=== PATIENT | male | born 1990 | race Caucasian/White ===

== ENCOUNTER 2023-12-23 18:14 | Emergency (ER) | payer BC, OTHER, SELFPAY ==
[2023-12-23 18:20] VITALS: BP 125/86; PULSE 116; RESP 24; TEMP 37.7; O2SAT 99
--- NOTE | 2023-12-23 18:22 | ED.GENADULT ---
HPI - General Adult General Chief complaint: Arrhythmia/Palpitations Stated complaint: pressure under eyes,migraine,slurring words Time Seen by Provider: 12/23/23 18:15 Source: patient, RN notes reviewed and old records reviewed Mode of arrival: ambulatory Limitations: no limitations History of Present Illness HPI narrative: 33-year-old male presents to the [facility] with multiple complaints. States that he feels dizzy cannot stand, severe headache, slurring words, nausea. States that his entire body hurts, reports that it is bone pain. Patient recently out of drug rehab for methamphetamine use. States the last time he used methamphetamine was 09 November On arrival patient is clammy, tachycardic in the 120s. Patient extremely anxious Patient states he does take propanolol but had stopped when he was in drug rehab Related Data Home Medications Medication Instructions Recorded Confirmed gabapentin 600 mg tablet 600 mg PO DAILY 12/23/23 12/23/23 lisdexamfetamine 10 mg capsule 10 mg PO DAILY 12/23/23 12/23/23 (Vyvanse) Allergies Allergy/AdvReac Type Severity Reaction Status Date / Time No Known Allergies Allergy Verified 12/23/23 18:51 Review of Systems Review of Systems: All systems reviewed & are unremarkable except as noted in HPI and below Constitutional: Constitutional: Reports as per HPI, Reports body ache(s), Reports fatigue, Reports headache(s) and Reports weakness Eyes: Eyes: Reports no additional eye complaints ENT: Reports system reviewed and no additional complaints, except as documented Cardiovascular: Cardiovascular: Reports as per HPI, Denies chest pain, Reports diaphoresis, Reports rapid heart rate and Denies dyspnea Respiratory: Respiratory: Reports no additional respiratory complaints, Denies chest congestion, Denies cough and Denies dyspnea Gastrointestinal: Gastrointestinal: Reports as per HPI, Denies abdominal pain, Reports nausea and Denies vomiting Musculoskeletal: Musculoskeletal: Reports as per HPI, Reports back pain and Reports muscle weakness Integumentary/Breasts: Skin/Breast: Reports system reviewed and no additional complaints, except as docu Neurologic: Reports as per HPI, Reports abnormal gait, Reports dizziness, Reports headache(s), Denies focal weakness, Denies numbness, Denies paresthesias and Reports weakness Psychiatric: Psychiatric: Reports as per HPI, Reports anxiety and Reports confusion Allergic/Immunologic: Allergic/Immunologic: Reports no additional allergic/immunologic complaints PMFSH Past Medical History Medical History (Updated 12/23/23 @ 18:56 by Karlene Chua APRN) Anxiety Methamphetamine dependence in remission Social History Social History (Updated 12/23/23 @ 18:36 by Karlene Chua APRN) Substance use: former Substance use type: methamphetamine Last use: 11/10/23 Gender identity (if verbalized by the patient): Male Comments At the time of my signature, I reviewed and agree with the nursing past medical, surgical, social, and family history. There is no relevant family history pertinent to the patient complaint. Exam Const: General: cooperative, well developed, alert, in distress moderate, anxious, uncomfortable and well nourished Nutritional Appearance: well nourished Orientation/consciousness: patient oriented x3 Limitations: no limitations HENMT: Head: normal to inspection Ears: hearing grossly normal bilaterally and external ears normal Face/Nose/Sinus: Normal external nose present, Normal nares present, Normal nasal mucous membranes and turbinates present, normal facial exam and face symmetric Face and sinus: normal facial exam and face symmetric Eyes: General: appearance normal, both eyes and all related structures Alignment and Position: alignment normal Periorbital: periorbital findings normal Neck: Neck: normal visual inspection, full ROM, no lymphadenopathy and no meningeal signs Chest: Chest palpation & inspection: normal
--- NOTE | 2023-12-23 19:50 | ECG_ITS ---
Test Date: 2023-12-23 18:22:16 Measurements Intervals [place] Rate: 113 P: 58 PA: 153 QRS: 72 QRSD: 97 T: 33 QT: 309 QTc: 424 Interpretive Statements SINUS TACHYCARDIA NONSPECIFIC T-WAVE ABNORMALITY CANNOT RULE OUT INFERIOR MYOCARDIAL INFARCTION, AGE UNDETERMINED NONSPECIFIC ST ABNORMALITY ABNORMAL ECG No previous ECG available for comparison Electronically Signed On 12-24-2023 10:51:14 CDT by Jean Walton M.D.
== END 2023-12-23 18:32 | disposition short-term general hospital (02) ==
PROVIDERS: Emergency Provider Nurse Practitioner
DX: R00.0 Tachycardia, unspecified (principal); R42 Dizziness and giddiness; R51.9 Headache, unspecified
CPT/HCPCS: 93005; 99215; G0463

== ENCOUNTER 2023-12-23 18:45 | Emergency (ER) | payer BC, OTHER, SELFPAY ==
[2023-12-23 18:46] VITALS: BP 139/81; PULSE 118; RESP 18; TEMP 36.6; O2SAT 99
--- NOTE | 2023-12-23 20:44 | PC.NURSE ---
Pt to intake desk how much longer or where am i in line. Pt told that he has 3 more people ahead of him unless anyone more unstable/critical comes in. Pt verbalized i am leaving i am not waiting any more. Pt placed his urine cup with pee on the intake desk and left.
== END 2023-12-23 21:23 | disposition left against medical advice (07) ==
LOC: ANHED 21:02
DX: R51.9 Headache, unspecified (principal)
CPT/HCPCS: 99199